=== PATIENT | male | born 1950 | race Caucasian/White ===

== ENCOUNTER 2017-12-20 19:07 | Inpatient (IN) | payer OTHER ==
--- NOTE | 2017-12-20 19:29 | EDPHY ---
H & P Smoking Status: Never smoked <Francisco Bradford S - Last Filed: 12/20/17 22:06> <MarielVito E - Last Filed: 12/25/17 13:49> Time Seen by Provider: 12/20/17 19:20 HPI/ROS: CHIEF COMPLAINT: Head injury and altered level of consciousness HISTORY OF PRESENT ILLNESS: History from the patient as well as his daughter. Apparently he has a history of dementia and lives at [facility]. His daughter found him today by using his GPS location on his cellphone and tracked him to an elevator in the business park on [facility] where he was lying on the ground. The patient says he bent over to pick a flower in the [place] and hit his head on a stick. Patient actually currently has no medical complaints although further history and review of systems is limited by the patient's dementia. REVIEW OF SYSTEMS: Eye: no change in vision ENT: no sore throat Cardiac: no chest pain or syncope Pulmonary: no cough or SOB Abdomen: no vomiting, diarrhea, abdominal pain Musculoskeletal: no back pain or neck pain Skin: Abrasion right side of his face Neuro: no headache Constitutional: no fever : no urinary symptoms A comprehensive 10 point review of systems is otherwise negative aside from elements mentioned in the history of present illness. PAST MEDICAL HISTORY: Includes dementia and hypertension and depression Social history: Nonsmoker, no alcohol, here with his daughter, tetanus up to date. Primary care provider is in [place] at [place], sees Dr. Barone from Neurology General Appearance: Alert and conversant, cooperative. Eyes: No scleral icterus. Pupils equal and reactive extraocular movement intact. ENT, Mouth: Normal mucous membranes. Right forehead abrasion. Respiratory: Normal respiratory effort, breath sounds equal, lungs are clear to auscultation. Cardiovascular: Regular rate and rhythm. Gastrointestinal: Abdomen is soft and non tender. Neurological: Alert, face symmetric, normal motor and sensory in extremities. At patient knows it is [facility] but thinks it is 2017 and does not know his age. Speech is fluent follows commands appropriately. Skin: Right forehead abrasion. Musculoskeletal: No peripheral edema. No midline spinal tenderness including cervical. Psychiatric: Not agitated. Emergency Department course/MDM: Plan for noncontrast head CT and wound care. Chest x-ray for oxygen saturation in the 80s % on room air. EKG and CBC and chemistry, troponin, urinalysis. 2000: Signed out to Dr. Floyd with plan for admission, diagnostics pending. Discussed with the daughter and patient plan for admission and the fact that Dr. Floyd will follow-up diagnostics with them. (Francisco Bradford) Constitutional: Initial Vital Signs Temperature (C) 36.6 C 12/20/17 19:13 Heart Rate 91 12/20/17 19:13 Respiratory Rate 18 12/20/17 19:13 Blood Pressure 109/70 12/20/17 19:13 O2 Sat (%) 91 L 12/20/17 19:13 O2 Delivery Mode Room Air O2 (L/minute) 2 Allergies/Adverse Reactions: Penicillins Allergy (Verified 12/20/17 19:18) Home Medications: Medication Instructions Recorded Aspirin EC [Aspirin EC 81 mg (*)] 81 mg PO DAILY 12/20/17 Citalopram [CeleXA 20 MG] 20 mg PO DAILY 12/20/17 Donepezil HCl [Aricept] 10 mg PO DAILY 12/20/17 Memantine HCl [Namenda 10 mg] 10 mg PO DAILY 12/20/17 Medical Decision Making <Francisco Bradford - Last Filed: 12/20/17 22:06> - Diagnostics Imaging: Discussed imaging studies w/ dyeing machine tender Radiologist <Vito Folyd - Last Filed: 12/25/17 13:49> - Diagnostics EKG Interpretation: 12-lead EKG interpreted by me; official reading is in trace master. My interpretation is sinus rhythm rate 87 with normal intervals and no ischemic changes. (Francisco Bradford) An EKG obtained and was read and documented in trace view. Please see trace view for full reading and report. Sinus rhythm, no acute ischemic changes, similar to previous (Vito Floyd) ED Course/Re-evaluation: Patient has an elevated creatinine as well as an elevated D-dimer and elevated troponin. He denies chest pain or shortness of breath. Repeat EKG remains reassuring. I spoke with Dr. Craft about admission. Will admit him to the step-down unit. I will initiate heparin and hydration to see if he can get a CT scan angio later. In the meantime will obtain ultrasounds of his lower extremities. Will also obtain an echo to further assess. (Vito Floyd) Differential Diagnosis: Partial list of the Differential diagnosis considered include but were not limited to; pneumonia, PE, dehydration, acute coronary disease, rhabdo and although unlikely based on the history and physical exam, I also considered sepsis, intracranial injury. (Vito Floyd) - Data Points Laboratory Results: Laboratory Results 12/20/17 19:39 12/20/17 19:39 Medications Given: Discontinued Medications Aspirin Buffered (Aspirin Ec) 81 mg PO DAILY BENITO Stop: 06/19/18 08:59 Last Admin: 12/22/17 08:23 Dose: 81 mg Citalopram Hydrobromide (Celexa) 20 mg PO DAILY BENITO Stop: 06/19/18 08:59 Last Admin: 12/22/17 08:23 Dose: 20 mg Donepezil HCl (Aricept) 10 mg PO DAILY BENITO Stop: 06/19/18 08:59 Last Admin: 12/22/17 08:23 Dose: 10 mg Heparin Sodium (Porcine) (Heparin Injection) 0 unit IVP EDNOW ONE PRN Reason: Protocol Stop: 12/20/17 20:42 Last Admin: 12/20/17 21:06 Dose: 5,000 units Heparin Sodium (Porcine) (Heparin Injection) 0 unit IVP ONCE ONE PRN Reason: Protocol Stop: 12/20/17 21:48 Last Admin: 12/20/17 23:09 Dose: 5,000 units Heparin Sodium (Porcine) (Heparin 50 Units/Ml (Premix)) 500 mls @ 0 mls/hr IV EDNOW ONE; Per Protocol PRN Reason: Protocol Stop: 12/20/17 20:42 Last Admin: 12/20/17 22:00 Dose: 500 mls Sodium Chloride (Ns) 1,000 mls @ 125 mls/hr IV CONT BENITO Stop: 12/21/17 09:29 Last Admin: 12/21/17 08:21 Dose: 1,000 mls Heparin Sodium (Porcine) (Heparin 50 Units/Ml (Premix)) 500 mls @ 0 mls/hr IV CONT BENITO; Per Protocol PRN Reason: Protocol Stop: 06/18/18 21:59 Last Admin: 12/21/17 15:29 Dose: 500 mls Thiamine HCl 500 mg/ Sodium (Chloride) 105 mls @ 210 mls/hr IV DAILY BENITO Stop: 12/24/17 08:59 Last Admin: 12/22/17 12:26 Dose: 105 mls Sodium Chloride (Ns) 1,000 mls @ 75 mls/hr IV CONT BENITO Stop: 06/19/18 13:29 Last Admin: 12/22/17 01:28 Dose: 1,000 mls Memantine (Namenda) 10 mg PO DAILY BENITO Stop: 06/19/18 08:59 Last Admin: 12/22/17 08:23 Dose: 10 mg Pneumococcal 13-Valent Conj Vacc (Prevnar 13 Syringe) 0.5 ml IM .ONCE ONE Stop: 12/21/17 12:21 Last Admin: 12/21/17 13:12 Dose: 0.5 ml Tetracaine/Epinephrine/Lidocaine (Let Gel Topical) 1 ea TP EDNOW ONE Stop: 12/20/17 19:25 Last Admin: 12/20/17 19:36 Dose: 1 ea Departure <Francisco Bradford S - Last Filed: 12/20/17 22:06> <Vito Floyd E - Last Filed: 12/25/17 13:49> - Departure Disposition: [facility] Clinical Impression: Elevated troponin, Hypoxia Altered mental status Qualifiers: Altered mental status type: unspecified Qualified Code(s): R41.82 - Altered mental status, unspecified Condition: Fair
[2017-12-20] MEDS: LET GEL TOPICAL 1 EA SYR TP ONE (19:36)
--- NOTE | 2017-12-20 19:38 | CPEKG ---
Heart Rate: 87 RR Interval: 690 P-R Interval: 196 QRSD Interval: 86 QT Interval: 392 QTC Interval: 472 P [place]: 75 QRS [place]: 15 T Wave [place]: 78 EKG Severity - NORMAL ECG - EKG Impression: SINUS RHYTHM Electronically Signed By: Francisco Bradford 20-Dec-2017 19:39:03
[2017-12-20 19:55] LABS: PLATELET COUNT 244 10^3/uL (150-400)
[2017-12-20] MEDS ORDERED: HEPARIN 10,000 UNIT/10 ML MDV (1,000 UNIT/ML) IVP ONE ×2 (20:41→21:47)
[2017-12-20] MEDS ORDERED: HEPARIN/DEXTROSE 500 ML IV ONE (20:41)
--- NOTE | 2017-12-20 20:41 | CPEKG ---
Heart Rate: 82 RR Interval: 732 P-R Interval: 212 QRSD Interval: 84 QT Interval: 388 QTC Interval: 453 P [place]: 61 QRS [place]: 9 T Wave [place]: 62 EKG Severity - NORMAL ECG - EKG Impression: SINUS RHYTHM Electronically Signed By: Vito Floyd 20-Dec-2017 20:45:47
[2017-12-20 20:54] LABS: INR 1.07 (0.83-1.16); PROTIME(PATIENT) 14.1 SEC (12.0-15.0)
[2017-12-20 21:11] LABS: CREATINE KINASE 390 IU/L (0-224)
[2017-12-20] MEDS ORDERED: ACETAMINOPHEN 325 MG TAB PO PRN (21:23)
[2017-12-20] MEDS ORDERED: ONDANSETRON DISINTEGRATING 4 MG TAB PO PRN (21:23)
[2017-12-20] MEDS ORDERED: ONDANSETRON 4 MG/2 ML VIAL IVP PRN (21:23)
[2017-12-20] MEDS ORDERED: NS 1,000 ML IV SCH (21:30)
[2017-12-20] MEDS ORDERED: HEPARIN 10,000 UNIT/10 ML MDV (1,000 UNIT/ML) IVP PRN (21:47)
[2017-12-20] MEDS ORDERED: HEPARIN/DEXTROSE 500 ML IV SCH (22:00)
[2017-12-20] MEDS ORDERED: FLUMAZENIL 0.5 MG/5 ML MDV IVP PRN (22:30)
[2017-12-20] MEDS ORDERED: LORazepam 2 MG/ML INJ IVP PRN (22:30)
--- NOTE | 2017-12-20 22:41 | GHP ---
[f rep st] HISTORY AND PHYSICAL DATE OF ADMISSION: 12/20/2017 CHIEF COMPLAINT: Head laceration, indeterminate troponin. PRIMARY CARE PHYSICIAN: Dr. Marcelo at [facility]. HPI: A 67-year-old male with history of Alzheimer disease, hypertension, NITIN not on CPAP, who was br ought in by his daughter. History is obtained from both daughter, son-in-law, as well as the patient . He lives at the [facility] and went for a walk today. His daughter found him by using GPS and track ed him to an elevator at a business park on [facility], approximately 2 miles from his home. He wa s lying on the ground. He had a laceration on his forehead that he said was from bending over to pic k up a flower in the [place] and hit his head on a stick. He denies loss of consciousness. No chest p ain, lower extremity swelling, or pillow orthopnea. Per daughter, she has noticed that he has become more winded, especially with walking over the last 3 weeks. He was confused when she found him in t he elevator. He denies fevers, chills, or sweats. No nausea, vomiting, or diarrhea. Per daughter, he normally kn ows his name and where he is. Is not oriented to time. He drinks 2 to 3 drinks a day. Smokes marij uana daily. REVIEW OF SYSTEMS: I completed a 10-point review of systems, negative except as noted in HPI. PAST MEDICAL HISTORY: Hypertension, Alzheimer disease, sleep study 2016 showed NITIN, he is not on CPA P, alcohol dependence, marijuana use, depression. SURGICAL HISTORY: Vasectomy. FAMILY HISTORY: No MIs or CVAs. SOCIAL HISTORY: Lives alone at the [facility]. His daughter helps him dose his medications with a pil lbox. He drinks 2 to 3 drinks a day, marijuana daily. No cigarettes. ALLERGIES: Penicillin. HOME MEDICATIONS: Namenda 10 mg daily, aspirin 81 mg daily, lisinopril 20 mg daily, Aricept 10 mg da adrian, Celexa 20 mg daily. PHYSICAL EXAMINATION: VITAL SIGNS: Temperature 36.7, blood pressure 122/70, heart rates in the 70s, respirations 14. He was 85 in the emergency room initially. GENERAL: Mildly disheveled. HEENT: Dry mucous membranes. Right forehead with abrasion, mild bleeding. CV: Regular rate and rhythm. N o murmurs, gallops, rubs. No lower extremity edema. LUNGS: Clear. ABDOMEN: Soft, nontender, nond istended. : No [place]. No suprapubic or CVA tenderness. MUSCULOSKELETAL: 5/5 upper/lower extrem ity strength. NEURO: 2 through 12 intact. Negative pronator drift. Normal rapid alternating hand movements. +3 reflexes bilaterally patella, +2 biceps. Normal sensation to touch. No facial droop. PSYCH: He is alert to hospital, city, not the year. LABS: WBC 16, hemoglobin 18, hematocrit 51, platelets 244. D-dimer is 1.6. INR is 1.07. PT is 14. Sodium 146, potassium 4.1, chloride 108, carbon dioxide 19, anion gap 19, creatinine is 2.3 (baseli ne is 1.03 in July 2015 per [facility] records). Glucose is 139, calcium 10.9. Phosphorus is 2.3. M ag pending. Troponin is 0.180. BNP is pending. Chest x-ray is personally reviewed by me. No effusion or opacity. EKG personally reviewed by me: S T flattening V3 and the anterior leads. Head CT: No acute intracranial abnormality. Ultrasound, lower extremities, negative for DVT. ASSESSMENT AND PLAN: 1. Mild acute hypoxic respiratory failure: With 85% in the emergency room. D-dimer was elevated. Cannot perform CT with SHEKHAR. Ultrasound of legs was negative. Will empirically treat with heparin ov ernight. We will hydrate and hopefully can do a CT in the morning. Echocardiogram is pending, as we ll as a BNP. 2. Non-ST elevation myocardial infarction: Differential is demand with possible infection. A UA is pending. There is no evidence of pneumonia. He does deny chest pain. Echocardiogram is pending fo r wall motion abnormalities. I explained cardiac catheterization to both patient and his family. He declines at this time. It is not certain that he fully has medical decisional capacity. His daught er is his MD STARR, and she will bring in his Living Will. 3. Acute kidney injury: Creatinine is 2.3. Last lab in July 2015 was 1. Does appear dry on exa m. Checking a UA, urine, lytes, and hydrating. Will repeat. 4. Depression: Continue Celexa. 5. Alzheimer dementia: Lives at the [facility] independently. Question his safety given that he is w andering around. We will have PT/OT evaluate. 6. Alcohol dependence: Patient says he does not drink much, but daughter says he does drink daily. Will place on CIWA. 7. Polycythemia: This may be secondary to dehydration. We will hydrate and repeat in the morning. 8. Leukocytosis: May be stress reaction or dehydration. He denies any infectious symptoms. Chest x-ray is negative. UA is pending. Will not start antibiotics at this time. He is afebrile. 9. Diet: Regular. 10. Deep venous thrombosis prophylaxis: He is on a heparin drip. 11. Patient warrants inpatient admission given concern for possible PE versus ACS warranting serial troponin, CT scan when creatinine is improved. /[id number]/MODL
[2017-12-20 23:08] LABS: INR 1.15 (0.83-1.16); PROTIME(PATIENT) 14.9 SEC (12.0-15.0)
[2017-12-21] MEDS: DONEPEZIL HCL 5 MG TAB PO SCH (08:19)
[2017-12-21] MEDS: MEMANTINE HCL 5 MG TAB PO SCH (08:19)
[2017-12-21] MEDS: CITALOPRAM 20 MG TAB PO SCH (08:19)
[2017-12-21] MEDS: ASPIRIN EC 81 MG TAB PO SCH (08:20)
[2017-12-21] MEDS: THIAMINE HCL 500 MG in NS 100 ML IV SCH (08:23)
--- NOTE | 2017-12-21 08:38 | ECHO ---
[email or web address] [address] Main: [phone] Fax: Transthoracic Echocardiogram Name: ARTHUR MENCHACA MR#: [id number] Study Date: 12/21/2017 Study Time: 07:33 AM Date of : 1950 Age: 67 year(s) Height: ( ) Weight: 83.92 kg (185 lb.) BSA: Gender: Male Examination: Echo Indication: Image Quality: Adequate Contrast: Requested by: Vito Floyd BP: 111 mmHg/62 mmHg Heart Rate: Rhythm: Indication: Procedure Staff Associate Marketing Manager: Jo Ann Ayoub RDCS Reading Physician: Jung Nunes MD Requesting Provider: Conclusions: No pericardial effusion. Mild to moderate mitral regurgitation with an ejection fraction of 60%. Right ventricular systolic pressure of 31 mm of mercury. Measurements: Chambers Valvular Assessment AV/MV Valvular Assessment TV/PV Normal Normal Normal Name Value Range Name Value Range Name Value Range Ao Lisha (2D): 3.1 cm (1.4 cm-2.6 AV meanP mmHg ( - ) TR Vmax: 2.57 mm/s ( - ) cm) BETTYE (VTI): 2.5 cm ( - ) TR PGmax: 26 mmHg ( - ) IVSd (2D): 1.1 cm (0.6 cm-1.1 MV E Vmax: 0.52 m/s ( - ) syst. PAP: 31 mmHg ( - ) cm) MV A Vmax: 0.45 m/s ( - ) PV Vmax: 0.84 m/s (0.6 m/s-0.9 LVDd (2D): 4.9 cm (4.2 cm-5.9 MV E/A: 1.16 ( - ) m/s) cm) MV PHT: 0.072 s ( - ) PV PGmax: 3 mmHg ( - ) LVDs (2D): 3.0 cm (2.1 cm-4 cm) MVA (PHT): 3.1 s ( - ) LVPWd (2D): 1.1 cm (0.6 cm-1 cm) LVOTd 2.0 cm 2.0 cm mm LVEF (BP): 60 % (>=55 %) RVDd(2D): 3.3 cm (1.9 cm-3.8 cmmm) Continued Measurements: Chambers Valvular Assessment AV/MV Valvular Assessment TV/PV Name Value Name Value Name Value LADs: 4.3 cm MV DecTime: 243 m/s CVP (est.): 5 mmHg LADs Lon.5 cm MV E' Septal: 0.06 m/s LA Area: 22.9 cm2 MV E/E' Septal: 8.50 LA Volume: 78 ml MV E/E' Lateral: 5.40 Patient: ARTHUR MENCHACA Study Date: 12/21/2017 Page 1 of 2 07:33 AM RA Area: 24.4 cm2 MR ERO: 0.180 cm2 MR PISA radius: 6 mm MR Reg. Volume: 30 ml Additional Vessels Name Value Ao Ascendin.0 cm Inferior Vena Cava: 1.8 cm Findings: Left Ventricle: Normal size left ventricle. No LV hypertrophy. Normal global systolic LV function. EF is 60 %. No regional wall motion abnormality. Unable to assess diastolic dysfunction. Right Ventricle: Normal size right ventricle. Normal RV function. Left Atrium: The left atrium is normal in size. Patient's height not available to calculate LA index. Right Atrium: The right atrium is normal in size. Mitral Valve: The mitral valve is normal in appearance and function. Mild to moderate mitral regurgitation. No mitral stenosis is present. Aortic Valve: The aortic valve is normal in appearance and function. Mild aortic valve regurgitation is present. No aortic valve stenosis is present. Tricuspid Valve: The tricuspid valve is normal in appearance and function. Mild tricuspid regurgitation is present. The pulmonary artery pressure is normal. Right ventricular systolic pressure measures 31mmHg. Pulmonic Valve: The pulmonic valve is normal in appearance and function. There is no pulmonic regurgitation seen. Aorta: The aorta is normal. Normal size aortic root measuring 3.1 cm. Normal size ascending aorta measuring 3.0 cm. IVC: The IVC is normal sized. Pericardium: No pericardial effusion. No pleural effusion. (No Signature Object) Patient: ARTHUR MENCHACA Study Date: 12/21/2017 Page 2 of 2 07:33 AM [id number]
--- NOTE | 2017-12-21 08:55 | PDCARCONS ---
Cardiology Consult Reason for Consult: Elevated troponin Chief Complaint: No complaints this morning Requesting Physician: Venancio History of Present Illness: 67-year-old male with Alzheimer's disease admitted to the hospital last night after he was found wandering with a laceration of the skull. Initial evaluation showed a mild elevation in troponin in the setting of renal failure, hypoxia. An echocardiogram was ordered for assessment of the right heart and regional wall motion abnormalities. On my arrival this morning patient is pain- free resting comfortably in a chair with his daughter. He denies chest pain, shortness of breath, PND, orthopnea. He has had no palpitations, has no history of presyncope. Patient describes a fall last night. He has no prior cardiovascular history. In particular no history of myocardial infarction, valvular heart disease, heart failure. He has no history of dysrhythmia. He has had well treated hypertension managed with lisinopril. He is a nonsmoker. He has had no history of hyperlipidemia and diabetes. He has no family history of early heart disease. He lives at the [facility]. He has no decisional making capacity. History Information - Allergies/Home Medication List Allergies/Adverse Reactions: Penicillins Allergy (Verified 12/20/17 19:18) Home Medications: Aspirin EC [Aspirin EC 81 mg (*)] 81 mg PO DAILY 12/20/17 [Last Taken 12/20/17] Citalopram [CeleXA] 20 mg PO DAILY 12/20/17 [Last Taken 12/20/17] Donepezil HCl [Aricept] 10 mg PO DAILY 12/20/17 [Last Taken 12/20/17] Lisinopril [Zestril 20 mg (*)] 20 mg PO DAILY 12/20/17 [Last Taken 12/20/17] Memantine HCl [Namenda] 10 mg PO DAILY 12/20/17 [Last Taken 12/20/17] I have personally reviewed and updated: family history, medical history, social history, surgical history Past Medical History: - Past Medical History hypertension - Surgical History Reports: no pertinent surgical hx - Family History Positive for: non-pertinent - Social History Smoking Status: Never smoked Drug Use: Marijuana Physical Exam Physical Exam: Temp Pulse Resp BP Pulse Ox 37.2 C 60 17 111/62 94 12/21/17 04:01 12/21/17 04:01 12/21/17 04:01 12/21/17 04:01 12/21/17 04:01 O2 (L/minute) 2 Constitutional: no apparent distress, other (Laceration above the right eye) Eyes: PERRL, anicteric sclera Ears, Nose, Mouth, Throat: moist mucous membranes Cardiovascular: regular rate and rhythym, no murmur, rub, or gallop Peripheral Pulses: 1+: carotid (R), carotid (L), femoral (R), femoral (L), dorsalis-pedis (R), dorsalis-pedis (L) Respiratory: no respiratory distress, no rales or rhonchi Gastrointestinal: normoactive bowel sounds, soft, non-tender abdomen Skin: warm, normal color, No rash Musculoskeletal: full muscle strength, No asymmetric calves, No muscular tenderness Neurologic: other (Alert, responsive), No facial droop Psychiatric: interacting appropriately Lymph, Heme, Immunologic: no cervical LAD, no supraclavicular LAD Lab and Imaging 12/20/17 19:39 12/21/17 08:00 WBC 16.50 10^3/uL (3.80-9.50) H 12/20/17 19:39 RBC 5.54 10^6/uL (4.40-6.38) 12/20/17 19:39 Hgb 18.0 g/dL (13.7-17.5) H 12/20/17 19:39 Hct 51.1 % (40.0-51.0) H 12/20/17 19:39 MCV 92.2 fL (81.5-99.8) 12/20/17 19:39 MCH 32.5 pg (27.9-34.1) 12/20/17 19:39 MCHC 35.2 g/dL (32.4-36.7) 12/20/17 19:39 RDW 12.1 % (11.5-15.2) 12/20/17 19:39 Plt Count 244 10^3/uL (150-400) 12/20/17 19:39 MPV 9.4 fL (8.7-11.7) 12/20/17 19:39 Neut % (Auto) 86.9 % (39.3-74.2) H 12/20/17 19:39 Lymph % (Auto) 5.9 % (15.0-45.0) L 12/20/17 19:39 [place] % (Auto) 6.5 % (4.5-13.0) 12/20/17 19:39 Eos % (Auto) 0.1 % (0.6-7.6) L 12/20/17 19:39 Baso % (Auto) 0.1 % (0.3-1.7) L 12/20/17 19:39 Nucleat RBC Rel Count 0.0 % (0.0-0.2) 12/20/17 19:39 Absolute Neuts (auto) 14.34 10^3/uL (1.70-6.50) H 12/20/17 19:39 Absolute Lymphs (auto) 0.97 10^3/uL (1.00-3.00) L 12/20/17 19:39 Absolute Monos (auto) 1.07 10^3/uL (0.30-0.80) H 12/20/17 19:39 Absolute Eos (auto) 0.02 10^3/uL (0.03-0.40) L 12/20/17 19:39 Absolute Basos (auto) 0.02 10^3/uL (0.02-0.10) 12/20/17 19:39 Absolute Nucleated RBC 0.00 10^3/uL (0-0.01) 12/20/17 19:39 Immature Gran % 0.5 % (0.0-1.1) 12/20/17 19:39 Immature Gran # 0.08 10^3/uL (0.00-0.10) 12/20/17 19:39 PT 14.9 SEC (12.0-15.0) 12/20/17 22:32 INR 1.15 (0.83-1.16) 12/20/17 22:32 APTT 70.1 SEC (23.0-38.0) H 12/20/17 22:32 D-Dimer 1.65 ug/mLFEU (0.00-0.50) H 12/20/17 19:39 Heparin Anti-Xa, Unfract 0.40 IU/mL (0.32-0.67) 12/21/17 08:00 Sodium 144 mEq/L (135-145) 12/21/17 08:00 Potassium 4.0 mEq/L (3.3-5.0) 12/21/17 08:00 Chloride 105 mEq/L (97-110) 12/21/17 08:00 Carbon Dioxide 29 mEq/l (22-31) 12/21/17 08:00 Anion Gap 10 mEq/L (8-16) 12/21/17 08:00 BUN 30 mg/dL (7-23) H 12/21/17 08:00 Creatinine 1.6 mg/dL (0.7-1.3) H 12/21/17 08:00 Estimated GFR 43 12/21/17 08:00 Glucose 85 mg/dL (70-100) 12/21/17 08:00 Calcium 9.3 mg/dL (8.5-10.4) 12/21/17 08:00 Phosphorus 2.3 mg/dL (2.5-4.5) L 12/20/17 19:39 Magnesium 1.9 mg/dL (1.6-2.3) 12/20/17 19:39 Creatine Kinase 390 IU/L (0-224) H 12/20/17 19:39 CK-MB (CK-2) Fraction 2.48 ng/mL (0.00-4.55) 12/20/17 19:39 CK-MB (CK-2) % 0.6 % (0.0-4.0) 12/20/17 19:39 Creatine Kinase Interp NEGATIVE (NEGATIVE) 12/20/17 19:39 Troponin I 0.302 ng/mL (0.000-0.034) H 12/20/17 22:32 NT-Pro-B Natriuret Pep 255 pg/mL (0-125) H 12/20/17 19:39 Urine Color YELLOW 12/21/17 03:45 Urine Appearance HAZY 12/21/17 03:45 Urine pH 5.0 (5.0-7.5) 12/21/17 03:45 Ur Specific Neely 1.023 (1.002-1.030) 12/21/17 03:45 Urine Protein NEGATIVE (NEGATIVE) 12/21/17 03:45 Urine Ketones NEGATIVE (NEGATIVE) 12/21/17 03:45 Urine Blood 1+ (NEGATIVE) H 12/21/17 03:45 Urine Nitrate NEGATIVE (NEGATIVE) 12/21/17 03:45 Urine Bilirubin NEGATIVE (NEGATIVE) 12/21/17 03:45 Urine Urobilinogen NEGATIVE EU (0.2-1.0) 12/21/17 03:45 Ur Leukocyte Esterase NEGATIVE (NEGATIVE) 12/21/17 03:45 Urine RBC 1-3 /hpf (0-3) 12/21/17 03:45 Urine WBC 5-10 /hpf (0-3) H 12/21/17 03:45 Ur Epithelial Cells TRACE /lpf (NONE-1+) 12/21/17 03:45 Urine Bacteria TRACE /hpf (NONE SEEN) H 12/21/17 03:45 Hyaline Casts 50-182 /lpf (0-1) H 12/21/17 03:45 Urine Mucus 1+ /lpf (NONE-1+) 12/21/17 03:45 Urine Glucose NEGATIVE (NEGATIVE) 12/21/17 03:45 EKG additional interpertation: EKG reveals sinus rhythm. Early transition across the precordium. No dynamic changes over serial ECG concerning for ischemia/infarction. Echocardiogram: No pericardial effusion. Preserved LV systolic function. No regional wall motion abnormalities in particular in the posterior circulation territory. Mild to moderate mitral regurgitation with mild left atrial enlargement and thickening of the anterior leaflet. A/P Assessment: Impression: 67-year-old male no prior cardiovascular history, risk for cardiovascular disease include hypertension and age as well as male sex. No clinical evidence of active ischemia based on interview. Caveats being he has significant Alzheimer's dementia. He does appear to respond in the moment appropriately. Echocardiogram does not show injury. EKG does not show dynamic changes concerning for active ischemia. His troponins are low and flat in the setting of elevated creatinine. CPK MB does not confirm injury. Brain atretic peptide is only mildly elevated. This all would be expected in the setting of hypoxia found at the time of ER visit. No evidence of non ST segment elevation myocardial infarction. No at evidence of acute coronary syndrome. Recommendations are to resume lisinopril for hypertension. Resume daily aspirin. Complete risk stratification with lipids. Agree with continued evaluation for pulmonary embolic disease. Patient is currently on heparin. There is no evidence of right ventricular involvement nor is there evidence of elevated right ventricular systolic pressure concerning for hemodynamically significant PE. Review of Systems Review of Systems: - Review of Systems Constitutional: denies: chills, fever EENTM: no symptoms reported Respiratory: no symptoms reported Cardiac: no symptoms reported Gastrointestinal/Abdominal: no symptoms reported Genitourinary: no symptoms Musculoskelatal: no symptoms Skin: no symptoms Neurological: no symptoms Hematologic/Lymphatic: no symptoms reported Immunologic/allergic: no symptoms reported All Other Systems: Reviewed and Negative
--- NOTE | 2017-12-21 09:22 | CPEKG ---
Heart Rate: 58 RR Interval: 1034 P-R Interval: 196 QRSD Interval: 88 QT Interval: 428 QTC Interval: 421 P Chassell: 66 QRS Chassell: 8 T Wave Chassell: 112 EKG Severity - ABNORMAL ECG - EKG Impression: SINUS RHYTHM EKG Impression: NONSPECIFIC T ABNORMALITIES, ANT-LAT LEADS Electronically Signed By: Neftaly Kelly 24-Dec-2017 10:28:29
--- NOTE | 2017-12-21 10:11 | PDMN ---
Medical Necessity Medical necessity: Pt meets IP criteria per MD; est los >2 mn for eval/tx of head laceration r/t fall & possible PE vs ACS warranting serial troponin, further workup/monitoring, IV Heparin, Cardiology/Wound Care consults & therapy ; hx Alzheimers, HTN, NITIN; per H&P & order 12/20/17
--- NOTE | 2017-12-21 11:40 | WOCRNPDOC ---
WOCRN Advanced Assessment Note - Skin Integrity Problem, Advanced Assess Left Pedal Foot Blister Dressing Type: Open to Air Exudate Amount: Scant Exudate Color: Yellow Exudate Characteristic(s): Serous Integumentary Issue Intervention: Dressing Applied Wound Bed Color: [place], Purple, Red Wound Bed Constitution: Red/[place] - Non Granular Tissue Wound Edges: Attached Site Measurement - Head-to-Toe Length X Width X Depth (cm): 5.1x6.5x0.1 Skin Integrity Problem Comment: Roof over blister was almost completely off and was folded up on top of wound. This was peeled off revaling a healthy wound bed. Small areas of dark purple bed over first, second and 4th metatarsal heads may indicate areas of further wound bed damage which may evolve. Small amount of purulent drainage was under some of the skin which was removed. All of the wound was cleaned and flushed well with ns and dabbed with gauze. It was covered with saline moistened gauze and secured with sultana. Wound care will round again Sunday. Right Pedal Foot Blister Dressing Type: Open to Air Exudate Amount: Scant Exudate Color: Clear, Yellow Exudate Characteristic(s): Serous Integumentary Issue Intervention: Dressing Applied Tiffanie Wound Tissue: Erythema Wound Bed Color: [place] Wound Bed Constitution: Red/[place] - Non Granular Tissue, De-roofed Serous Blister Wound Edges: Attached, Not Attached Site Measurement - Head-to-Toe Length X Width X Depth (cm): 6.1x6x0.1 Skin Integrity Problem Comment: Deroofed serous blister. However the distal portion of the roof appears to have peeled off and reattached in the middle of the wound bed. That area was not disturbed. However there weres several folds of skin where the remainder of the roof had rolled up around where the toes meet the foot. They were not attached and had several open areas of missing skin. This was debrided back to clean tissue. Willa NGUYEN in room for care. The entire area was cleaned well with saline and gauze. The wound was then covered with saline moistened gauze and then secure with sultana as patient was going to shower. Report to Yady NGUYEN and dressings supplied to her as well. Conservative Sharp Bedside Debridement Performed: Yes (Debrided the skin of the blister. ) Consent Signed for Debridement: No (Patient and daughter in room a verbally agreed to debridement) Timeout Performed per Protocol: Yes Instrument Used for Debridement: Scissors Measurements Before Debridement: unchanged Estimated Blood Loss from Debridement: 0 Conservative Sharp Bedside Debridement Outcome: Down to Viable Tissue
[2017-12-21] MEDS ORDERED: PNEUMOC 13-VAL CONJ-DIP CRM/PF 0.5 ML SYR IM ONE (12:20)
--- NOTE | 2017-12-21 12:33 | ASMTCMCOM ---
CM Note CM Note Notes: 12/21/2017 Case Management Note Met pt during rounds this morning. Pt admitted for altered mental status. Pt wandered for 2-3 miles from the [facility] yesterday. Met w/daughter after rounds. Dilcia can be reached at [phone]. Pt was diagnosed with early onset Alzheimers in 2014 per Dilcia. Dilcia and her brother have investigated MemoryCare centers and are currently on the wait list for [facility]. Dilcia to call and see if admission is possible. Provided Senior blue book for alternative centers to consider. Provided info on [facility] costing approximately $17/hour. Dilcia felt that would be too disruptive for pt. Discussed hiring unskilled care for 24 hour supervision. Provided list of unskilled agencies. Dilcia to call the [facility] to see if they have a preferred agency. Discussed a d/c to SNF, Dilcia felt this level of care was unnecessary at this time. Case Management d/c poc: return to the [facility] with unskilled care arranged by Dilcia to provide 24 hour supervision. Case Management to follow. Date Signed: 12/21/2017 12:32 PM Electronically Signed By:Analy Cho RN
--- NOTE | 2017-12-21 13:19 | HOSPPROG ---
Hospitalist Progress Note Assessment/Plan: #Hypoxemia/Acute Resp Failure -now on RA -No SOB, CP, cough -normal exam -No infiltrate on XR #Indeterminate troponin in the setting of ARF -EKG reassuring. -repeat EKG today shows no ischemia -trop is decreasing -Echo is reassuring. no injury -Cards has evaluated, and has cleared him from need for procedure #?P.E in setting if elevated D-Dimer and elevated trops -no signs of strain on TTE -no leg swelling, negative LE doppler -Doubt P.E. -Cant get a CTA due to renal function -for now cont Heparin, re-eval tomorrow #Dehydration and ARF -improving with IVF -cont IVF today #Leukocytosis -no obvious source of infection -negative CXR and urine -Afebrile -no diarrhea #Alzheimer -will likely need higher level of care, CM looking into this. #Sinus Bradycardia, monitoring closely #Hx of ETOH, no in WD #s/p fall and Head Lac (repaired): -negative CT brain SCD's cont inpatient Subjective: feels better. no cp or sob. no n/v/d Objective: Vital Signs Temp Pulse Resp BP Pulse Ox 36.7 C 48 L 16 123/65 H 94 12/21/17 11:44 12/21/17 11:44 12/21/17 11:44 12/21/17 11:44 12/21/17 11:44 Laboratory Results 12/21/17 08:00 12/20/17 12/21/17 12/22/17 05:59 05:59 05:59 Intake Total 2444 650 Output Total 200 Balance 2244 650 PT 14.9 SEC (12.0-15.0) 12/20/17 22:32 INR 1.15 (0.83-1.16) 12/20/17 22:32 - Physical Exam Constitutional: no apparent distress Eyes: PERRL, EOMI Ears, Nose, Mouth, Throat: moist mucous membranes, hearing normal Cardiovascular: regular rate and rhythym, No edema Respiratory: no respiratory distress, no rales or rhonchi, clear to auscultation Gastrointestinal: normoactive bowel sounds, soft, non-tender abdomen Genitourinary: no bladder fullness Skin: warm Neurologic: No AAOx3 Psychiatric: interacting appropriately, not anxious, not encephalopathic, No encephalopathic Lymph, Heme, Immunologic: No petechiae ICD10 Worksheet Patient Problems: Problems Problem Status Onset Altered mental status Acute Elevated troponin Acute Hypoxia Acute
[2017-12-21] MEDS: NS 1,000 ML IV SCH (13:41)
[2017-12-22] MEDS: NS 1,000 ML IV SCH (01:28)
[2017-12-22 06:52] LABS: PLATELET COUNT 165 10^3/uL (150-400)
[2017-12-22] MEDS: CITALOPRAM 20 MG TAB PO SCH (08:23)
[2017-12-22] MEDS: THIAMINE HCL 500 MG in NS 100 ML IV SCH ×2 (08:23→12:26)
[2017-12-22] MEDS: MEMANTINE HCL 5 MG TAB PO SCH (08:23)
[2017-12-22] MEDS: DONEPEZIL HCL 5 MG TAB PO SCH (08:23)
[2017-12-22] MEDS: ASPIRIN EC 81 MG TAB PO SCH (08:23)
[2017-12-22 11:44] VITALS: BP 122/90
[2017-12-22] MEDS ORDERED: IOPAMIDOL (ISOVUE 370) 100 ML BTL IV ONE (13:19)
--- NOTE | 2017-12-22 15:00 | PDIAF ---
- Diagnosis Diagnosis: acute renal failure, bilateral foot wounds Code Status: Full Code - Medication Management Discharge Medications: Medications to Continue on Transfer Aspirin EC [Aspirin EC 81 mg (*)] 81 mg PO DAILY 12/20/17 [Last Taken 12/20/17] Citalopram [CeleXA 20 MG] 20 mg PO DAILY 12/20/17 [Last Taken 12/20/17] Donepezil HCl [Aricept] 10 mg PO DAILY 12/20/17 [Last Taken 12/20/17] Memantine HCl [Namenda 10 mg] 10 mg PO DAILY 12/20/17 [Last Taken 12/20/17] Discharge Medications: Refer to the Discharge Home Medication list for PRN reason. - Orders Services needed: Home Care, Registered Nurse (wound care) Home Care Face to Face: I certify that this patient was under my care and that I had the required [id number] encounter meeting the encounter requirements on the discharge day. My findings support the fact that the patient is homebound as defined in Home Care Face to Face Continued: CMS Chapter 7 Medicare Benefits Manual 30.1.1 , The condition of the patient is such that there exists a normal inability to leave home and consequently, leaving home would require a considerable and taxing effort. Diet Recommendation: no restrictions on diet Diet Texture: Regular Texture Diet Additional Instructions: Please follow up within 2 weeks of discharge with outpatient [facility] if you continue to have issues with your wounds: You may reach them at [phone] for an appointment and continued management of your wounds. [facility] to schedule your appointment as they fill up quickly. If before that time you have any issues, please follow up with your PCP. Patient may shower with dressings off. Then clean well with ns after shower and reapply dressings. Left foot wound: Change daily (for 4 days and then move to every other day) and prn 1. Flush wound bed really well with saline 2. Apply silvaosorb to wound bed and cover with non border foam. 3. Secure with sultana and netting. Wrap librado all the way around the ankle to make sure it doesnt slip off. Right foot wound: Change daily (for 4 days and then move to every other day) and prn 1. Flush wound bed really well with saline 2. Apply silvaosorb to only the open pink wound beds (do not apply over the area of intact skin in the middle of the wound and cover the whole area with non border foam. 3. Secure with sultana and netting. Wrap librado all the way around the ankle to make sure it doesnt slip off. Marci Alejandra CWON activity: as tolerated f/u: with PCP in one week - Follow Up Care Current Providers and Referrals: NONE *PRIMARY CARE P,. [Primary Care Provider] - As per Instructions (Your PCP or neurologist Dr. Barone at [facility])
--- NOTE | 2017-12-22 15:05 | PDDCSUM ---
Discharge Summary Discharge Summary: 67 yo male admitted with dehydration and Acute renal failure. Unclear what led him to become dehydrated. He was hydrated with IVF and is now back to baseline. There was some initial concern about P.E. but CTA performed today is unremarkable. We will cont to hold Lisinopril. He should have repeat labs upon f /u with PCP. He was found wondering in the streets and he has advance dementia. The plan at this time is for him to d/c under his daughters care. He will f/u with PCP in one week DDX: #Hypoxemia/Acute Resp Failure -now on RA -No SOB, CP, cough -normal exam -No infiltrate on XR #Indeterminate troponin in the setting of ARF -EKG reassuring. -repeat EKG shows no ischemia -trop is decreasing -Echo is reassuring. no injury -Cards has evaluated, and has cleared him from need for procedure #elevated D-Dimer and elevated trops -initially started on Heparin empirically. Now stopping since no e/o of dvt #Dehydration and ARF -resolved with IVF #Leukocytosis -no obvious source of infection -negative CXR and urine -Afebrile -no diarrhea -resolved #Alzheimer -will likely need higher level of care, CM looking into this. #Sinus Bradycardia, monitoring closely #Hx of ETOH, no in WD #s/p fall and Head Lac (repaired): -negative CT brain Exam: NAD AAOX3 RRR CTA B S/NT/ND MEDS: SEE MED REC F/U: WILL F/U WITH PCP IN ONE WEEK TOTAL TIME SPENT ON D/C IS 35 MINS
--- NOTE | 2017-12-22 17:31 | ASDISCHSUM ---
Discharge Information Plan Status:Home with Home Health Medically Cleared to Leave: Discharge Date:12/22/2017 03:58 PM CM D/C Disposition:Home Health Service ADT D/C Disposition:[id number] Projected Discharge Date:12/22/2017 11:00 AM Transportation at D/C: Discharge Delay Reason: Follow-Up Date:12/22/2017 11:00 AM Discharge Slot: Final Diagnosis: Placement Information Referral Type:*Home Health Care Services Referral ID:[id number] Provider Name:[facility] [place] Address 1:[address] [place] [address] Address 2: City:[place] Selection Factors: State:[place] Patient Contact Information Contact Name:LOUIS Relationship:Daughter Address: Work Phone: City:[place] Alternate Phone: [facility] Code:[place] Email: Financial Information Financial Class:Medicare Primary Plan Desc:MEDICARE INPATIENT Primary Plan Number:[id number] Secondary Plan Desc:[facility] Secondary Plan Number:[id number] Assessment Information [facility] CM Progress Note CM Note CM Note Notes: 12/21/2017 Case Management Note Met pt during rounds this morning. Pt admitted for altered mental status. Pt wandered for 2-3 miles from the [facility] yesterday. Met w/daughter after rounds. Dilcia can be reached at [phone]. Pt was diagnosed with early onset Alzheimers in 2015 per Dilcia. Dilcia and her brother have investigated Memory[facility] centers and are currently on the wait list for [facility]. Dilcia to call and see if admission is possible. Provided Senior blue book for alternative centers to consider. Provided info on [facility] costing approximately $17/hour. Dilcia felt that would be too disruptive for pt. Discussed hiring unskilled care for 24 hour supervision. Provided list of unskilled agencies. Dilcia to call the [facility] to see if they have a preferred agency. Discussed a d/c to SNF, Dilcia felt this level of care was unnecessary at this time. Case Management d/c poc: return to the [facility] with unskilled care arranged by Dilcia to provide 24 hour supervision. Case Management to follow. Date Signed: 12/21/2017 12:32 PM Electronically Signed By:Analy Cho RN Case Management Discharge Plan Note Case Management Discharge Discharge Order Complete? Answers: Yes Patient to Obtain Answers: via Family Medications Transportation Arranged Answers: Family/Friends Faxed Final Orders Answers: Yes Family Notified Answers: Yes Discharge Comments Notes: pt will dc home w/daughter. Met w/ pt and daughter to discuss dc plan. Dilcia, his daughter, reports that pt will stay w/her and her over the long weekend and then he will stay at [facility] during the days and at her house at night until they can figure out memory care facility for him. Pt is in agreement w/this. He will have C with [facility]; confirmed w/EWNDY Hubbard from [facility] that they could accept pt. They are aware of both [place] residence and his daughters residence [facility] that he wero be at. Referral, orders, info all sent through [employer]. Discussed w/ and RN. Date Signed: 12/22/2017 03:57 PM Electronically Signed By:Lena Montenegro RN Intervention Information
[2017-12-24] MEDS ORDERED: THIAMINE HCL 100 MG TAB PO SCH (09:00)
== END 2017-12-22 15:58 | disposition home health service (06) | DRG 682 ==
LOC: OBSVTOIN 20:44 → F2W 21:55
PROVIDERS: ADMIT Internal Medicine; ATTEND Internal Medicine
DX: N17.9 Acute kidney failure, unspecified (principal); E86.0 Dehydration; J96.01 Acute respiratory failure with hypoxia; R00.1 Bradycardia, unspecified; G30.9 Alzheimer's disease, unspecified; F02.80 Dementia in other diseases classified elsewhere, unspecified severity, without behavioral disturbance, psychotic disturbance, mood disturbance, and anxiety; I10 Essential (primary) hypertension; G47.33 Obstructive sleep apnea (adult) (pediatric)
CPT/HCPCS: 85520-90; 92523-GN; 96374; G0009; G9168-GN-CL; G9169-GN-CK; J1644; J3411; Q9967